=== PATIENT | female | born 1950 | race Caucasian/White ===

== ENCOUNTER → 2016-10-18 | Outpatient (CLI) | payer MEDICARE, OTHER ==
[~2016-10-18] VITALS: Ht 165.1 cm; Wt 102.1 kg
[~2016-10-18] MED LIST: AVAP150T31 PO; LIDOCAINE 2% INJ 100 MG/5 ML SDV (FOR ANES.) As Ordered ONE; NS 1,000 ML IV SCH; OMEP20CA3 PO; PROPOFOL 500 MG/50 ML VIAL As Ordered ONE; ePHEDrine SULFATE 25 MG/5 ML(5MG/ML) SYRINGE As Ordered ONE
--- NOTE | 2016-10-18 12:45 | ROOR ---
Patient Name: Nancy Conley Procedure Date: 10/18/2016 12:31 PM Date of : 1950 Age: 66 Room: [facility] Gender: Female Note Status: Finalized Procedure: Upper GI endoscopy Indications: Heartburn Providers: Avtar Puga MD Referring MD: Pillo Tamez MD Requesting Provider: Medicines: Monitored Anesthesia Care Complications: No immediate complications. Procedure: Pre-Anesthesia Assessment: - The heart rate, respiratory rate, oxygen saturations, blood pressure, adequacy of pulmonary ventilation, and response to care were monitored throughout the procedure. The Endoscope was introduced through the mouth, and advanced to the second part of duodenum. The upper GI endoscopy was accomplished without difficulty. The patient tolerated the procedure well. Findings: The Z-line was regular and was found 40 cm from the incisors. No other significant abnormalities were identified in a careful examination of the stomach. The exam of the duodenum was otherwise normal. Impression: - Z-line regular, 40 cm from the incisors. - No specimens collected. - The examination was otherwise normal. Recommendation: - Patient has a contact number available for emergencies. The signs and symptoms of potential delayed complications were discussed with the patient. Return to normal activities tomorrow. Written discharge instructions were provided to the patient. - Resume previous diet. - Discharge patient to home. - Follow an antireflux regimen. - Continue present medications. - Return to referring physician. - The findings and recommendations were discussed with the patient's family. Avtar Puga MD Avtar Puga MD 10/18/2016 12:45:02 PM This report has been signed electronically. Number of Addenda: 0 Note Initiated On: 10/18/2016 12:31 PM Estimated Blood Loss: Estimated blood loss: none.
--- NOTE | 2016-10-18 12:59 | ROOR ---
Patient Name: Nancy Conley Procedure Date: 10/18/2016 12:32 PM Date of : 1950 Age: 66 Room: [facility] Gender: Female Note Status: Finalized Procedure: Colonoscopy to Cecum Indications: Colon cancer screening in patient at increased risk: Colorectal cancer in mother Providers: Avtar Puga MD Referring MD: Pillo Tamez MD Requesting Provider: Medicines: Monitored Anesthesia Care Complications: No immediate complications. Procedure: Pre-Anesthesia Assessment: - The heart rate, respiratory rate, oxygen saturations, blood pressure, adequacy of pulmonary ventilation, and response to care were monitored throughout the procedure. The Colonoscope was introduced through the anus and advanced to the cecum, identified by appendiceal orifice and ileocecal valve. The colonoscopy was performed without difficulty. The patient tolerated the procedure well. The quality of the bowel preparation was excellent. Findings: The perianal and digital rectal examinations were normal. Non-bleeding internal hemorrhoids were found during retroflexion. The hemorrhoids were small and Grade I (internal hemorrhoids that do not prolapse). No other significant abnormalities were identified in a careful examination of the remainder of the colon. The exam was otherwise without abnormality on direct and retroflexion views. Impression: - Non-bleeding internal hemorrhoids. - The examination was otherwise normal on direct and retroflexion views. - No specimens collected. - The exam was otherwise normal to the cecum. Recommendation: - Patient has a contact number available for emergencies. The signs and symptoms of potential delayed complications were discussed with the patient. Return to normal activities tomorrow. Written discharge instructions were provided to the patient. - High fiber diet. - Discharge patient to home. - Continue present medications. - Repeat colonoscopy in 5 years for screening purposes. - Return to referring physician. - The findings and recommendations were discussed with the patient's family. Avtar Puga MD Avtar Puga MD 10/18/2016 12:59:21 PM This report has been signed electronically. Number of Addenda: 0 Note Initiated On: 10/18/2016 12:32 PM Estimated Blood Loss: Estimated blood loss: none.
[2016-10-18 13:20] VITALS: BP 141/79
== END ==
LOC: M OPP 11:22
PROVIDERS: ATTEND Internal Medicine Gastroenterology
DX: Z12.11 Encounter for screening for malignant neoplasm of colon (principal); Z80.0 Family history of malignant neoplasm of digestive organs; K64.0 First degree hemorrhoids; R12 Heartburn; Z79.899 Other long term (current) drug therapy
CPT/HCPCS: 43235; G0105

== ENCOUNTER 2016-11-17 04:13 | Emergency (ER) | payer MEDICARE, OTHER ==
[~2016-11-17] VITALS: Ht 165.1 cm; Wt 102.1 kg
[~2016-11-17 04:13] MED LIST changes: -LIDOCAINE 2% INJ 100 MG/5 ML SDV (FOR ANES.) As Ordered ONE; -NS 1,000 ML IV SCH; -PROPOFOL 500 MG/50 ML VIAL As Ordered ONE; -ePHEDrine SULFATE 25 MG/5 ML(5MG/ML) SYRINGE As Ordered ONE
[2016-11-17] MEDS ORDERED: NS 500 ML IV ONE (05:15)
[2016-11-17] MEDS ORDERED: CIPROFLOXACIN 500 MG TAB PO ONE (06:30)
[2016-11-17] MEDS ORDERED: PHENAZOPYRIDINE 100 MG TAB PO ONE (06:30)
[2016-11-17] MEDS ORDERED: CIPR500T89 PO (06:31)
[2016-11-17] MEDS ORDERED: PYRI200T5 PO (06:31)
[2016-11-17 06:55] VITALS: BP 135/65
== END 2016-11-17 06:58 | disposition home or self-care (01) ==
LOC: M ED 06:08
DX: N39.0 Urinary tract infection, site not specified (principal); G47.33 Obstructive sleep apnea (adult) (pediatric); Z79.899 Other long term (current) drug therapy

== ENCOUNTER → 2017-04-14 | Outpatient (CLI) | payer MEDICARE, OTHER ==
[~2017-04-14] MED LIST changes: +CIPR-249 PO; +PYRI1TAB5 PO
--- NOTE | 2017-04-14 11:56 | REPMRS ---
Patient History The patient states she had a clinical breast exam in 03/2017. Patient is postmenopausal and has history of melanoma skin cancer at age 66. Family history of colorectal cancer in mother at age 87 and endometrial cancer in maternal aunt at age 80. Took hormonal contraceptives for 5 years. Digital Woman Screen Mammo: April 14, 2017 - Exam #: [id number] Bilateral CC and MLO view(s) were taken. Technologist: Joi Brown, Technologist Prior study comparison: April 12, 2016, digital woman screen mammo performed at [facility]. April 23, 2015, digital woman screen mammo performed at [facility]. FINDINGS: There are scattered fibroglandular densities. There has been no change in the appearance of the mammogram from the prior studies. There is a mild amount of residual fibroglandular tissue which is fairly symmetric. There is no interval development of dominant mass, architectural distortion, or clustered microcalcification suggestive of malignancy. ASSESSMENT: BI-RADS/ACR category 1 mammogram. Negative. Recommendation Routine screening mammogram in 1 year (for women over age 40). This mammogram was interpreted with the aid of an FDA-approved computer-aided dectection system. Electronically Signed By: Umesh Muniz MD 04/14/17 [id number]
--- NOTE | 2017-04-15 10:34 | DEXA ---
AP SPINE L1 - L4 1.271 0.6 2.2 LT FEMUR TOTAL 1.030 0.2 1.5 RT FEMUR TOTAL 0.925 -0.7 0.6 TOTAL BODY TOTAL OTHER DUAL FEMUR FRAX* ASSESSMENT Risk factors: 10 year probability of fracture Major osteoporotic fracture % Hip fracture % COMMENTS: Normal bone densitometry of the spine. Normal bone densitometry of the left hip. There is low bone density of the right hip. The density of the spine has increased 9.6% since 10/07/2009. The density of the left hip has decreased 6.6% since 10/07/2009. The density of the right hip has decreased 11.5% since 10/07/2009. The increased density of the spine does represent a significant change. The decreased density of the left hip does represent a significant change. The decreased density of the right hip does represent a significant change. FOLLOW-UP: Recommendation for the next bone density exam: 2 years. [id number]
== END ==
LOC: M WHC 10:51
PROVIDERS: ATTEND Nurse Practitioner Women's Health
DX: Z01.419 Encounter for gynecological examination (general) (routine) without abnormal findings (principal); Z12.31 Encounter for screening mammogram for malignant neoplasm of breast; Z13.820 Encounter for screening for osteoporosis; M81.0 Age-related osteoporosis without current pathological fracture; Z78.0 Asymptomatic menopausal state; Z12.12 Encounter for screening for malignant neoplasm of rectum; Z80.0 Family history of malignant neoplasm of digestive organs; Z92.0 Personal history of contraception
CPT/HCPCS: 77080; 82270; G0101; G0202

== ENCOUNTER 2017-10-11 07:05 | Emergency (ER) | payer MEDICARE, OTHER | END 2017-10-11 08:05 | disposition home or self-care (01) | LOC: M ED 07:05 | DX: J34.0 Abscess, furuncle and carbuncle of nose (principal); I10 Essential (primary) hypertension; K21.9 Gastro-esophageal reflux disease without esophagitis; G47.33 Obstructive sleep apnea (adult) (pediatric); M19.90 Unspecified osteoarthritis, unspecified site; Z79.899 Other long term (current) drug therapy | CPT/HCPCS: 87186 ==

== ENCOUNTER 2017-10-14 22:23 | Emergency (ER) | payer MEDICARE, OTHER ==
[2017-10-15] MEDS: LIDOCAINE 2% MDV 20 ML VIAL SC (01:08)
== END 2017-10-15 01:41 | disposition home or self-care (01) ==
LOC: M ED 22:23
DX: J34.0 Abscess, furuncle and carbuncle of nose (principal); Z79.899 Other long term (current) drug therapy
CPT/HCPCS: 10060

== ENCOUNTER 2017-10-16 08:04 | Emergency (ER) | payer MEDICARE, OTHER | END 2017-10-16 08:50 | disposition home or self-care (01) | LOC: M ED 08:04 | DX: Z48.00 Encounter for change or removal of nonsurgical wound dressing (principal); J34.0 Abscess, furuncle and carbuncle of nose; I10 Essential (primary) hypertension; K21.9 Gastro-esophageal reflux disease without esophagitis; Z79.2 Long term (current) use of antibiotics; Z79.899 Other long term (current) drug therapy | CPT/HCPCS: 99282 ==

== ENCOUNTER → 2018-02-17 | Outpatient (CLI) | payer MEDICARE, OTHER | LOC: M RAD 11:26 | DX: N63.20 Unspecified lump in the left breast, unspecified quadrant (principal); R92.8 Other abnormal and inconclusive findings on diagnostic imaging of breast | CPT/HCPCS: 77065 ==

== ENCOUNTER → 2018-04-17 | Outpatient (CLI) | payer MEDICARE, OTHER | LOC: M WHC 10:09 | DX: Z01.419 Encounter for gynecological examination (general) (routine) without abnormal findings (principal); Z12.31 Encounter for screening mammogram for malignant neoplasm of breast (principal); Z78.0 Asymptomatic menopausal state; Z92.0 Personal history of contraception; Z80.0 Family history of malignant neoplasm of digestive organs | CPT/HCPCS: 77067 ==

== ENCOUNTER → 2019-04-18 | Outpatient (CLI) | payer MEDICARE, OTHER ==
[~2019-04-18] MED LIST changes: +BACT800T5 PO; +CALTTAB5 PO; +MULT1TAB10 PO; +MUPI2OI EXT; -OMEP20CA3 PO; +OMEP20CA4 PO; +RANI1SYP PO; +VITA-122 PO
--- NOTE | 2019-04-18 14:54 | REPMRS ---
Patient History The patient states she had a clinical breast exam in 03/2019. Patient is postmenopausal and has history of melanoma skin cancer at age 66. Family history of colorectal cancer at age 87 in mother, endometrial cancer at age 80 in maternal aunt. Took hormonal contraceptives for 5 years. 3D TOMOSYNTHESIS WAS PERFORMED. The [facility] lifetime risk for breast cancer is 7.0%. Digital Woman Screen Mammo: April 18, 2019 - Exam #: [id number] Bilateral CC and MLO view(s) were taken. Technologist: Joi Brown, Technologist Prior study comparison: April 17, 2018, bilateral digital woman screen mammo performed at [facility]. February 17, 2018, left breast digital mammo diagnostic unilateral, performed at [facility]. FINDINGS: There are scattered fibroglandular densities. There has been no change in the appearance of the mammogram from the prior studies. There is a mild amount of residual fibroglandular tissue which is fairly symmetric. There is no interval development of dominant mass, architectural distortion, or clustered microcalcification suggestive of malignancy. Assessment: BI-RADS/ACR category 1 mammogram. Negative Mammogram. Recommendation Routine screening mammogram in 1 year (for women over age 40). This mammogram was interpreted with the aid of an FDA-approved computer-aided dectection system. Electronically Signed By: Umesh Muniz MD 04/18/19 [id number]
== END ==
LOC: M WHC 13:08
PROVIDERS: ATTEND Nurse Practitioner Women's Health
DX: Z12.31 Encounter for screening mammogram for malignant neoplasm of breast (principal); Z78.0 Asymptomatic menopausal state; Z85.820 Personal history of malignant melanoma of skin; Z80.0 Family history of malignant neoplasm of digestive organs; Z92.0 Personal history of contraception
CPT/HCPCS: 77063; 77067; G0463

== ENCOUNTER → 2020-04-24 | Outpatient (REF) | payer MEDICARE, OTHER ==
[~2020-04-24] MED LIST changes: +OMEP1CAP73 PO; -OMEP20CA4 PO
== END ==
LOC: M SFHCWAGY 17:02
PROVIDERS: ATTEND Nurse Practitioner Women's Health
DX: Z12.4 Encounter for screening for malignant neoplasm of cervix (principal); N93.9 Abnormal uterine and vaginal bleeding, unspecified; N95.0 Postmenopausal bleeding; N95.8 Other specified menopausal and perimenopausal disorders
CPT/HCPCS: 87624; G0123; G0463

== ENCOUNTER → 2020-05-08 | Outpatient (CLI) | payer MEDICARE, OTHER ==
--- NOTE | 2020-05-08 16:59 | REPMRS ---
Patient History The patient states she has not had a clinical breast exam in over a year. Family history of colorectal cancer at age 87 in mother, endometrial cancer at age 80 in maternal aunt. Took hormonal contraceptives for 5 years. Digital Woman Screen Mammo: May 08, 2020 - Exam #: [id number] Bilateral CC and MLO view(s) were taken. Technologist: Vashti Medley, Technologist Prior study comparison: April 18, 2019, bilateral digital woman screen mammo performed at [facility]. April 17, 2018, bilateral digital woman screen mammo performed at [facility]. April 14, 2017, digital woman screen mammo performed at [facility]. FINDINGS: There are scattered fibroglandular densities. The Volpara volumetric breast density category is:B. There is a new finding of diffuse moderate dermal thickening in the right breast. This is most pronounced medially where dermal thickness today measures 6 mm, previously 1 mm. On MLO view diffuse dermal thickening is seen superiorly and inferiorly. There are surgical clips in the right axillary soft tissues.] There has been no other change in the appearance of the mammogram from the prior studies. There is a mild amount of scattered fibroglandular density which is fairly symmetric. There is no interval development of dominant mass, architectural distortion, or grouped microcalcification suggestive of malignancy. 3-D tomosynthesis shows no additional findings. Assessment: BI-RADS/ACR category 0 mammogram, Incomplete: Need additional imaging evaluation and/or prior mammograms for comparison. Recommendation Surgical consultation of the right breast. For further evaluation of diffuse skin thickening right breast new from prior mammography April 18, 2019 This patient's Lifetime Breast Cancer Risk is estimated at 6.6 %. This mammogram was interpreted with the aid of an FDA-approved computer-aided dectection system. Electronically Signed By: Fidel Alex MD 05/08/20 [id number]
--- NOTE | 2020-05-08 17:35 | REP ---
INDICATION: N93.9 AUB/N95.0 PMB. COMPARISON: None. TECHNIQUE: Transabdominal and transvaginal scanning were performed. FINDINGS: Uterine dimensions are normal at 8.0 x 3.8 x 5.6 cm. Endometrial echo is 0.9 cm thick and centrally placed. No free fluid is seen in the cul-de-sac. Visualized bladder diaz are smooth. Question small fibroid anterior uterus 0.8 cm in greatest diameter. Endometrial echo is considered thickened. It is somewhat heterogeneous. Doppler evidence of blood flow is seen within the thickened endometrium. The right ovary has dimensions of 2.1 x 1.3 x 1.3 cm. The left ovary dimensions are normal as well at 1.6 x 1.6 x 1.0 cm. IMPRESSION: Heterogeneously thickened endometrium in this postmenopausal patient. Endometrial neoplasia and/or hyperplasia must be suspected. 0.8 cm fibroid anteriorly. Normal ovaries.. <Electronically signed by Fidel Alex > 05/08/20 [id number]
== END ==
LOC: M WHC 14:25
PROVIDERS: ATTEND Nurse Practitioner Women's Health
DX: R92.8 Other abnormal and inconclusive findings on diagnostic imaging of breast (principal); N93.9 Abnormal uterine and vaginal bleeding, unspecified; N95.0 Postmenopausal bleeding; Z80.0 Family history of malignant neoplasm of digestive organs; Z92.0 Personal history of contraception; N63.10 Unspecified lump in the right breast, unspecified quadrant

== ENCOUNTER → 2020-05-13 | Outpatient (CLI) | payer MEDICARE, OTHER | LOC: M WHC 13:00 | PROVIDERS: ATTEND Nurse Practitioner Women's Health | DX: N63.15 Unspecified lump in the right breast, overlapping quadrants (principal) ==

== ENCOUNTER → 2020-05-13 | Outpatient (REF) | payer MEDICARE, OTHER | LOC: M SFHCWAGY 13:43 | PROVIDERS: ATTEND Nurse Practitioner Women's Health | DX: N93.9 Abnormal uterine and vaginal bleeding, unspecified (principal); N95.0 Postmenopausal bleeding; R93.89 Abnormal findings on diagnostic imaging of other specified body structures ==

== ENCOUNTER 2020-08-20 13:44 | Emergency (ER) | payer MEDICARE, OTHER ==
[~2020-08-20] VITALS: Ht 162.6 cm; Wt 101.8 kg
--- OUTSIDE RECORDS SUMMARY | 2020-08-20 14:47 | CCD ---
Author Author [facility] Address Unknown Phone Unavailable Care Team Providers Care Head Athletic Trainer Name Role Phone Som, P Delio Unavailable Unavailable Som, P Delio Unavailable Unavailable Som, P Delio Unavailable Unavailable Som, P Delio Unavailable Unavailable Som, P Delio Unavailable Unavailable Som, P Delio Unavailable Unavailable Som, P Delio Unavailable Unavailable Som, P Delio Unavailable Unavailable Som, P Delio Unavailable Unavailable Som, P Delio Unavailable Unavailable Som, P Delio Unavailable Unavailable Som, P Delio Unavailable Unavailable Som, P Delio Unavailable Unavailable Som, P Delio Unavailable Unavailable Som, P Delio Unavailable Unavailable Som, P Delio Unavailable Unavailable Som, P Delio Unavailable Unavailable Som, P Delio Unavailable Unavailable Som, P Delio Unavailable Unavailable Som, P Delio Unavailable Unavailable Som, P Delio Unavailable Unavailable Som, P Delio Unavailable Unavailable Som, P Delio Unavailable Unavailable Som, P Delio Unavailable Unavailable Som, P Delio Unavailable Unavailable Som, P Delio Unavailable Unavailable Som, P Delio Unavailable Unavailable Som, P Delio Unavailable Unavailable Som, P Delio Unavailable Unavailable Som, P Delio Unavailable Unavailable Som, P Delio Unavailable Unavailable Som, P Delio Unavailable Unavailable Som, P Delio Unavailable Unavailable Som, P Delio Unavailable Unavailable Som, P Delio Unavailable Unavailable Som, P Delio Unavailable Unavailable Som, P Delio Unavailable Unavailable Som, P Delio Unavailable Unavailable Som, P Delio Unavailable Unavailable Som, P Delio Unavailable Unavailable Som, P Delio Unavailable Unavailable Som, P Delio Unavailable Unavailable Som, P Delio Unavailable Unavailable Som, P Delio Unavailable Unavailable Som, P Delio Unavailable Unavailable Som, P Delio Unavailable Unavailable Som, P Delio Unavailable Unavailable Som, P Delio Unavailable Unavailable Som, P Delio Unavailable Unavailable RING, K GOPAL PA Unavailable Unavailable RING, K GOPAL PA Unavailable Unavailable RING, K GOPAL PA Unavailable Unavailable RING, K GOPAL PA Unavailable Unavailable RING, K GOPAL PA Unavailable Unavailable RING, K GOPAL PA Unavailable Unavailable RING, K GOPAL PA Unavailable Unavailable RING, K GOPAL PA Unavailable Unavailable RING, K GOPAL PA Unavailable Unavailable RING, K GOPAL PA Unavailable Unavailable RING, K GOPAL PA Unavailable Unavailable RING, K GOPAL PA Unavailable Unavailable RING, K GOPAL PA Unavailable Unavailable RING, K GOPAL PA Unavailable Unavailable RING, K GOPAL PA Unavailable Unavailable RING, K GOPAL PA Unavailable Unavailable RING, K GOPAL PA Unavailable Unavailable RING, K GOPAL PA Unavailable Unavailable RING, K GOPAL PA Unavailable Unavailable RING, K GOPAL PA Unavailable Unavailable RING, K GOPAL PA Unavailable Unavailable MD IGNACIO URIARTE Unavailable Unavailable Krystal, L Kimberly ELECTRICIAN SHIP Unavailable Unavailable Krystal, L Kimberly ELECTRICIAN SHIP Unavailable Unavailable Krystal, L Kimberly ELECTRICIAN SHIP Unavailable Unavailable Krystal, L Kimberly ELECTRICIAN SHIP Unavailable Unavailable Krystal, L Kimberly ELECTRICIAN SHIP Unavailable Unavailable Krystal, L Kimberly ELECTRICIAN SHIP Unavailable Unavailable Krystal, L Kimberly ELECTRICIAN SHIP Unavailable Unavailable Krystal, L Kimberly ELECTRICIAN SHIP Unavailable Unavailable Krystal, L Kimberly ELECTRICIAN SHIP Unavailable Unavailable Krystal, L Kimberly ELECTRICIAN SHIP Unavailable Unavailable Krystal, L Kimberly ELECTRICIAN SHIP Unavailable Unavailable Krystal, L Kimberly ELECTRICIAN SHIP Unavailable Unavailable Krystal, L Kimberly ELECTRICIAN SHIP Unavailable Unavailable Krystal, L Kimberly ELECTRICIAN SHIP Unavailable Unavailable Krystal, L Kimberly ELECTRICIAN SHIP Unavailable Unavailable Krystal, L Kimberly ELECTRICIAN SHIP Unavailable Unavailable Krystal, L Kimberly ELECTRICIAN SHIP Unavailable Unavailable Krystal, L Kimberly ELECTRICIAN SHIP Unavailable Unavailable Krystal, L Kimberly ELECTRICIAN SHIP Unavailable Unavailable Krystal, L Kimberly ELECTRICIAN SHIP Unavailable Unavailable Krystal, L Kimberly ELECTRICIAN SHIP Unavailable Unavailable Krystal, L Kimberly ELECTRICIAN SHIP Unavailable Unavailable Re-disclosure Warning The records that you are about to access may contain information from federally-assisted alcohol or drug abuse programs. If such information is present, then the following federally mandated warning applies: This information has been disclosed to you from records protected by federal confidentiality rules (42 CFR part 2). The federal rules prohibit you from making any further disclosure of this information unless further disclosure is expressly permitted by the written consent of the person to whom it pertains or as otherwise permitted by 42 CFR part 2. A general authorization for the release of medical or other information is NOT sufficient for this purpose. The Federal rules restrict any use of the information to criminally investigate or prosecute any alcohol or drug abuse patient.The records that you are about to access may contain highly sensitive health information, the redisclosure of which is protected by Article 27-F of the [facility] Public Health law. If you continue you may have access to information: Regarding HIV / AIDS; Provided by facilities licensed or operated by the [facility] Office of Mental Health; or Provided by the [facility] Office for People With Developmental Disabilities. If such information is present, then the following [facility] mandated warning applies: This information has been disclosed to you from confidential records which are protected by state law. State law prohibits you from making any further disclosure of this information without the specific written consent of the person to whom it pertains, or as otherwise permitted by law. Any unauthorized further disclosure in violation of state law may result in a fine or residential sentence or both. A general authorization for the release of medical or other information is NOT sufficient authorization for further disc losure. Family History Family Member Name Family Member Gender Family Member Status Date o f Status Description Data Source(s) Unknown Unknown Problem [facility]ENT ([facility], [facility]) father Unknown Male Problem MEDENT ([facility] () Encounters Encounter Providers Location Date Indications Data Source(s ) Outpatient Referrer: Delio Kearns 06/05/2020 07:38:11 AM E [facility] Outpatient Referrer: Delio Kearns 05/30/2020 10:10:20 AM E [facility] Outpatient Attender: Delio Acostaultant: Delio ANGULO 05/30/2020 09:09:55 AM EST - 05/30/2020 10:58:07 AM [facility] Outpatient Attender: Delio Davisant: Delio ANGULO 05/30/2020 12:00:00 AM EST - 05/30/2020 11:57:54 AM [facility] (WC PROC) [facility]Center Procedure [address] [place] [address] 05/13/2020 12:00:00 AM EST eCW1 ([facility]) (WC 20ESGYN) WCenter 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 [address] [place] [address] 04/24/2020 12:00:00 AM EDT eCW1 ([facility]) [facility] [address] [place] [address] 04/22/2020 12:00:00 AM EDT eCW1 ([facility]) Outpatient Referrer: MD IGNACIO URIARTE 10/31/2019 10:20:00 AM EDT [facility] Outpatient Referrer: MD IGNACIO URIARTE 10/31/2019 10:10:00 AM EDT [facility] Outpatient Referrer: MD IGNACIO URIARTE 10/31/2019 10:09:00 AM EDT [facility] Outpatient Attender: Kimberly Oliver/Ruma/Colton/Reinchris 10/23/2019 11:00:00 AM EDT MEDENT ([facility]) Outpatient Referrer: MD IGNACIO URIARTE 10/22/2019 08:31:00 AM EDT [facility] Outpatient 10/22/2019 08:24:00 AM EDT [facility] Outpatient Attender: GOPAL Lainez Primary 07/23/2019 07:30:00 AM EST MEDENT ([facility], [facility]) Immunizations Vaccine Date Status Description Data Source(s) INFLUENZA VACCINE QUADRIVALENT (65 YR UP)/MF59 C.1/PF 03/11/2020 12:00:00 AM EDT completed [facility] Medications Medication Brand Name Start Date Product Form Dose Route Admi nistrative Instructions Pharmacy Instructions Status Indications Reaction Description Data Source(s) 150 mg 08/08/2020 12:00:00 AM EST tablet 90 TAKE ONE TABLET BY MOUTH EVERY DAY TAKE ONE TABLET BY MOUTH EVERY DAY SOLD: 08/12/2020 [facility] Famotidine 40 MG Oral Tablet FAMOTIDINE 06/23/2020 12:00:00 AM EST tab let 90 TAKE ONE TABLET BY MOUTH EVERY DAY TAKE ONE TABLET BY MOUTH EVERY DAY SOLD: 06/24/2020 [facility] atorvastatin 20 MG Oral Tablet ATORVASTATIN CALCIUM 06/23/2020 1 2:00:00 AM EST tablet 90 TAKE ONE TABLET BY MOUTH EVERY D AY TAKE ONE TABLET BY MOUTH EVERY DAY SOLD: 06/24/2020 [facility] Famotidine 40 MG Oral Tablet famotidine (PEPCID) 40 MG tablet famotidine (PEPCID) 40 MG tablet 04/14/2020 12:00:00 AM EDT 40 mg Oral active Take 40 mg by mouth daily [facility] atorvastatin 20 MG Oral Tablet atorvastatin (LIPITOR) 20 MG tablet atorvastatin (LIPITOR) 20 MG tablet 03/24/2020 12:00:00 AM EDT 20 mg Oral active Take 20 mg by mouth daily [facility] 150 mg 02/16/2020 12:00:00 AM EDT tablet 90 TAKE ONE TABLET BY MOUTH EVERY DAY TAKE ONE TABLET BY MOUTH EVERY DAY SOLD: 05/20/2020 [facility] 150 mg 02/16/2020 12:00:00 AM EDT tablet 90 TAKE ONE TABLET BY MOUTH EVERY DAY TAKE ONE TABLET BY MOUTH EVERY DAY SOLD: 02/19/2020 [facility] 40 mg 12/25/2019 12:00:00 AM EDT tablet 90 TAKE ONE TABLET BY MOUTH EVERY DAY TAKE ONE TABLET BY MOUTH EVERY DAY SOLD: 04/15/2020 [facility] 40 mg 12/25/2019 12:00:00 AM EDT tablet 90 TAKE ONE TABLET BY MOUTH EVERY DAY TAKE ONE TABLET BY MOUTH EVERY DAY SOLD: 12/30/2019 [facility] atorvastatin 20 MG Oral Tablet ATORVASTATIN CALCIUM 12/17/2019 1 2:00:00 AM EDT tablet 90 TAKE ONE TABLET BY MOUTH EVERY D AY TAKE ONE TABLET BY MOUTH EVERY DAY SOLD: 03/26/2020 [facility] atorvastatin 20 MG Oral Tablet ATORVASTATIN CALCIUM 12/17/2019 1 2:00:00 AM EDT tablet 90 TAKE ONE TABLET BY MOUTH EVERY D AY TAKE ONE TABLET BY MOUTH EVERY DAY SOLD: 12/23/2019 [facility] 500 mg 12/05/2019 12:00:00 AM EDT capsule 4 TAKE FOUR CAPSULES BY MOUTH 1 HOUR PRIOR TO DENTAL PROCEDURE TAKE FOUR CAPSULES BY MOUTH 1 HOUR PRIOR TO DENTAL PROCEDURE SOLD: 12/10/2019 [facility] BIPAP 10/23/2019 12:00:00 AM EDT active MEDENT ([facility], ) 150 mg 08/22/2019 12:00:00 AM EST tablet 90 TAKE ONE TABLET BY MOUTH EVERY DAY TAKE ONE TABLET BY MOUTH EVERY DAY SOLD: 11/23/2019 [facility] 150 mg 08/22/2019 12:00:00 AM EST tablet 90 TAKE ONE TABLET BY MOUTH EVERY DAY TAKE ONE TABLET BY MOUTH EVERY DAY SOLD: 08/29/2019 [facility] Meclizine Hydrochloride 12.5 MG Oral Tablet Meclizine HCL 07/23/2019 12:00:00 AM EST ORAL active MEDENT ([facility] 12.5 mg 07/23/2019 12:00:00 AM EST tablet 10 TAKE ONE TABLET BY MOUTH AT BEDTIME NEEDED FOR DIZZINESS AND VERTIGO SYMPTOMS TAKE ONE TABLET BY MOUTH AT BEDTIME NEEDED FOR DIZZINESS AND VERTIGO SYMPTOMS SOLD: 07/23/2019 [facility] 150 mg 06/15/2019 12:00:00 AM EST capsule 90 TAKE ONE CAPSULE BY MOUTH AT BEDTIME TAKE ONE CAPSULE BY MOUTH AT BEDTIME SOLD: 09/11/2019 [facility] atorvastatin 20 MG Oral Tablet ATORVASTATIN CALCIUM 06/13/2019 1 2:00:00 AM EST tablet 90 TAKE ONE TABLET BY MOUTH EVERY D AY TAKE ONE TABLET BY MOUTH EVERY DAY SOLD: 09/11/2019 [facility] Omeprazole 20 MG Delayed Release Oral Ca psule omeprazole (PRILOSEC) 20 MG capsule omeprazole (PRILOSEC) 20 MG capsule 20 mg Oral aborted Take 20 mg by mouth every other day [facility] Insurance Providers Payer name Policy type / Coverage type Policy ID Covered alliance party ID Covered alliance party's relationship to wilson Policy Wilson Plan Information MEDICARE [id number] SP [id number] [facility] [id number] SP [id number] MEDICARE C [id number] S [id number] [facility] O [id number] S [id number] [facility] [id number] MEDICARE [id number] MEDICARE [id number] Heidi [id number] [facility] [id number] Heidi [id number] Commercial [id number] Self [id number] Medicare Natl Gov't Servi Medicare Primary [id number] Self [id number] Medicare - NGS Medicare Primary [id number] Self [id number] [facility] Health Maintenance Organization (HMO) [id number] Self [id number] MVP Commercial [id number] Self [id number] Medicare Natl Gov't Servi Medicare Primary [id number] Self [id number] Medicare C [id number] SELF [id number] [id number] DME Jurisdiction A [facility] C [id number] SELF [id number] [facility] Healthcare F [id number] SELF [id number] ANSI-Medicare Part B [id number] ANSI-Commercial [id number] MEDICARE C [id number] S [id number] A ANSI-Commercial [id number] ANSI-Medicare Part B [id number] MEDICARE [id number] SP [id number] A [facility] [id number] SP [id number] ANSI-Medicare Part B [id number] ANSI-Commercial [id number] MEDICARE [id number] SP [id number] A MEDICARE [id number] SP [id number] A Medicare C [id number] SELF [id number] A Medicare - NGS Medicare Primary [id number] Self [id number] P Commercial [id number] Self [id number] Medicare Natl Gov't Servi Medicare Primary [id number] Self [id number] MEDICARE [id number] Heidi [id number] A MEDICARE PI PI MVP PI PI MEDICARE [id number] SP [id number] A [facility] [id number] SP [id number] [facility] Commercial [id number] Self [id number] Medicare Natl Gov't Servi Medicare Primary [id number] Self [id number] [facility] [id number] SP [id number] [facility] Commercial [id number] Self [id number] Medicare Natl Gov't Servi Medicare Primary [id number] Self [id number] [facility] Health Care Health Maintenance Organization (HMO) [id number] Self [id number] [place] Primary [id number] Self [id number] P [id number] 18 [id number] Medicare [place] Division [id number] 18 [id number] [facility] Commercial Self Medicare Natl Gov't Servi Medicare Primary Self PATEL ZIMMERMAN PHY [id number] SP [id number] Problems, Conditions, and Diagnoses Code Display Name Description Problem Type Effective Dates Data Source(s) R93.89 [id number] Endometrial thickening on ultrasound Prob shyam 05/12/2020 12:00:00 AM EST eCW1 ([facility]) N93.9 [id number] Abnormal uterine bleeding (AUB) Problem 04/23/2020 12:00:00 AM EDT eCW1 ([facility]) N95.0 92129138 PMB (postmenopausal bleeding) Problem 2019 12:00:00 AM EDT eCW1 ([facility]) [id number] Obstructive sleep apnea syndrome Obstructive sle ep apnea syndrome Problem 10/23/2019 12:00:00 AM EDT [place] ([facility]RNA Peters) N64.59 Other signs and symptoms in breast Other signs a nd symptoms in breast Diagnosis 05/30/2020 11:03:31 AM EST [facility] Surgeries/Procedures Procedure Description Date Indications Data Source(s) US BREAST COMPLETE RIGHT US BREAST COMPLETE RIGHT Routine 05/30/2020 10:45 AM EST Thickening of skin of breast 05/30/2020 03:45:00 PM EST Thic kening of skin of breast [facility] Thickening of skin of breast RMVL IMPACTED CERUMEN SPX 1/BOTH EARS 07/23/2019 12:00 :00 AM EST MEDENT ([facility]) Results ID Date Data Source [id number] 07/31/2020 12:00:00 AM EST [facility] Sugar Chadwcik MD Patient Name: NANCY VELAZCO[address] [facility] Date of : [address] Date of Exam: [address] [place] [address], [place] [address]ZC#: Fax: [phone] EXAM: US EXTREMITY, NON-VASCULAR (ST MASS) LIMITEDCLINICAL INFORMATION: Right side melanoma of neck and sentinel node.COMPARISON: 10/31/2019.Real-time sonographic evaluation of the right axilla was performed. Thereis no cystic or solid mass. There is no evidence of lymphadenopathy in theright axilla.IMPRESSION:Negative right axillary ultrasound.Accredited by the [employer] in General Ultrasound.UMANG Tobias/Mary Jo you for referring NANCY VELAZCO to our office. Electronically Signed - REKHA RAMIREZ MD 08/04/20 11:38 Name Value Range Interpretation Code Description Data Violetta rce(s) Supporting Document(s) ID Date Data Source [id number] 07/31/2020 12:00:00 AM EST [facility] Sugar Chadwick MD Patient Name: NANCY VELAZCO[address] [facility] Date of : 1950[address] Date of Exam: [place] [id number]#: Fax: [phone] EXAM: US HEAD AND NECK SOFT TISSUECLINICAL INFORMATION: Right side melanoma of neck and sentinel node.COMPARISON: 10/31/2019.Real-time sonographic evaluation of the right neck soft-tissues wereperformed. No cystic or solid mass is seen. There is no evidence oflymphadenopathy.IMPRESSION:Negative ultrasound right neck soft-tissues.Accredited by the [employer] in General Ultrasound.UMANG Tobias/Mary Jo you for referring NANCY VELAZCO to our office. Electronically Signed - REKHA RAMIREZ MD 08/04/20 11:38 Name Value Range Interpretation Code Description Data Violetta rce(s) Supporting Document(s) ID Date Data Source [id number] 05/30/2020 12:28:27 PM [facility] NT INFORMATIONPatient MRN Name Date of Age Gend*PT [id number] Nancy Velazco 1950 69 years F ---PT Location Admission Date/Time Visit ID Attending Provider --- --- --- --- EPI ID CSN Admitting Provider [id number] ---Punch biopsy right breastIndications: Skin thickeningProcedure in detail: Consent was obtained with the patient her right breast wasprepped and draped. I injected 1% lidocaine with epinephrine at the 2:00location 3 cm from the nipple areola. I then used a 5 mm punch to completelyexcise full-thickness skin. The specimen was then placed in formalin. The skinwas closed with a 4-0 chromic stitch. A dressing was applied. The patienttolerated procedure well. Name Value Range Interpretation Code Description Data Violetta rce(s) Supporting Document(s) ID Date Data Source [id number] 05/30/2020 12:26:50 PM EST [facility] NT INFORMATIONPatient MRN Name Date of Age Gend*PT [id number] Nancy Velazco 1950 69 years F ---PT Location Admission Date/Time Visit ID Attending Provider --- --- --- --- EPI ID CSN Admitting Provider [id number] ---NEW CONSULT FOR BREAST PROBLEMReferred by: Arabella Diazessment:Right breast skin thickeningPlan:We discussed her breast findings on exam and imaging. [facility] In addition we performed a right breastultrasound and SJIA which just demonstrated skin thickening and no mass. Wetalked about the possibility of trying to rule out inflammatory breast cancerwith a biopsy. If the biopsy is negative I will see her back in 3 to 4 monthswith repeat right breast imaging with a mammogram and ultrasound. We will callher with the pathology report next week. She will call our office with any questions, concerns or changes in her breasthealth in the meantime.HPI:Nancy Velazco is a 69 years y.o. female who was referred for right breastskin thickening. 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 It looks like 2 nodes were removed and she did not have anylymphedema problems afterwards.Family Cancer History:Breast: NoOvarian: NoPast Medical History:Diagnosis Date Actinic keratosis Cardiac murmur Early cataracts, bilateral GERD (gastroesophageal reflux disease) Hyperlipidemia Hypertension Melanoma posterior neck Melanoma Rosacea Sleep apnea BiPAPPast Surgical History:Procedure Laterality Date COLONOSCOPY DILATION AND CURETTAGE OF UTERUS MALIGNANT SKIN LESION EXCISION melanoma from posterior neck SKIN LESION EXCISION TOTAL KNEE ARTHROPLASTY Right 05/10/2017 Procedure: TOTAL REPLACEMENT KNEE RIGHT; Surgeon: Gadiel Lutz MD;Laterality: Right; SOS PA TO ASSIST TRIATHLONAllergiesAllergen Reactions Adhesive Tape Other (See Comments) Causes rednessFamily HistoryProblem Relation Age of Onset Colon cancer Mother Uterine cancer Maternal Aunt Malig Hyperthermia Neg HxSocial HistoryTobacco Use Smoking status: Never Smoker Smokeless tobacco: Never UsedSubstance Use Topics Alcohol use: Yes Comment: 0-1/year Drug use: NoCurrent Outpatient MedicationsMedication Sig Dispense Refill atorvastatin (LIPITOR) 20 MG tablet Take 20 mg by mouth daily Calcium Carbonate-Vitamin D (CALCARB 600/D PO) Take 1 tablet by mouth daily famotidine (PEPCID) 40 MG tablet Take 40 mg by mouth daily ferrous gluconate (IRON 27) 240 (27 FE) MG tablet Take 240 mg by mouth daily irbesartan (AVAPRO) 150 MG tablet Take 150 mg by mouth daily Multiple Vitamins-Iron (MULTIVITAMIN WITH IRON) TABS Take 1 tablet by mouthdaily Vitamin D (CHOLECALCIFEROL) 1000 units tablet Take 1,000 Units by mouth dailyNo current facility-administered medications for this visit.Objective: BP 152/82 | Pulse 75 | Resp 18 | Ht 1.651 m (5' 5") | Wt (!) 104.3 kg (230lb) | BMI 38.27 kg/m General appearance: alert, appears stated age and cooperativeLungs: clear to auscultation bilaterallyLymph Nodes: Cervical, supraclavicular, and axillary nodes normal.Right Breast: Minimal and mild erythema around the right central breast mildskin thickening nontender no distinct mass nipple everted without dischargeLeft Breast: Nipple everted no masses skin appears normalImaging personally reviewedBreast density B diffuse moderate dermal thickening on the rightRight breast ultrasound skin thickening medially in the 2:00 location 2 to 4 cmfrom the nipple no masses no lymph nodes Name Value Range Interpretation Code Description Data Violetta rce(s) Supporting Document(s) ID Date Data Source [id number] 05/30/2020 10:45:00 AM EST [facility] ULTR ASOUND BREAST RIGHT COMPLETECLINICAL HISTORY: Skin thickening of right breast.COMPARISON: 05/08/2020 mammogram from an outside institution.FINDINGS: Ultrasound imaging was performed of the entire breast including the retroareolar region and axilla. Skin thickening is seen greater medially and especially in the 2 o'clock position, 2 to 4 cm from the nipple, where it measures 4.8 mm. No suspicious cystic or solid abnormality is seen. No abnormal vascularity or lymph nodes are seen.IMPRESSION: Right breast skin thickening greater medially at 2 o'clock as described.Dictated by: JULIO BERG M.D. on 05/30/2020 Transcribed by: on 05/30/2020 10:52 AMC G code: ,CDS Modifier: ,cc: Name Value Range Interpretation Code Description Data Violetta rce(s) Supporting Document(s) ID Date Data Source [id number] 06/03/2020 03:59:57 PM EST [facility] [place] [facility] [address] [address]Hug# Surgical Pathology ReportPatient Name: NANCY VELAZCO: 1Accession #:[id number]) ReceivedA: Punch biopsy to right breastClinical Diagnosis and HistoryThickening of skin on right breastDIAGNOSISSKIN, RIGHT BREAST, PUNCH BIOPSY: BENIGN SKIN WITH NO SIGNIFICANT PATHOLOGIC FINDINGS. Note: The epidermis is normal. The dermis is unremarkable, exceptfor scant perivascular chronic inflammation in the superficial dermis. PAS stain is negative for fungus. Gross DescriptionReceived in formalin labeled "R breast punch biopsy" is a 0.5 cm whitecircular skin punch excised to 0.4 cm. The specimen is inked blue andentirely submitted as A1. 5 levels. [id number] Reported: 06/03/2020Electronically Signed Out By Castro Garcia MD [facility] [place], [place] [id number] component performed at [facility], Histopathology, [address] [place] [address], [address].Reported at [facility], [address], [place], [address]. This report may includeimmunohistochemical or in-situ hybridization results. Testing wasdeveloped and the performance characteristics determined by [employer] as required by CLIA '88. The FDA hasdetermined that approval for specific use is not necessary for clinicaluse. The quality of Hematoxylin and Eosin stains and as applicable, forall immunohistochemical and/or special stains, including positive andnegative controls, were reviewed and considered appropriate.ICD codes N64.59CPT codesA: 08498X, 75907O Name Value Range Interpretation Code Description Data Violetta rce(s) Supporting Document(s) ID Date Data Source [id number] 10/31/2019 12:00:00 AM EDT [facility] Sugar Chadwick MD [facility] Date of : 1950uite 200 Date of Exam: 10/31/2019ADRIÁN Paz [id number]#: Fax: [phone] EXAM: US EXTREMITY, NON-VASCULAR (ST MASS) LIMITEDCLINICAL INFORMATION: History of melanoma. Status post right axillarylymph node dissection.Multiple ultrasonographic images of the right axilla were obtained and showno evidence of a cystic or solid mass. There is no evidence oflymphadenopathy.Accredited by the [employer] in General Ultrasound.STEFFI Jiang/Hernandez you for referring NANCY VELAZCO to our office. Electronically Signed - CATRACHO LINDA DO 10/31/19 16:35 Name Value Range Interpretation Code Description Data Violetta rce(s) Supporting Document(s) ID Date Data Source [id number] 10/31/2019 12:00:00 AM EDT [facility] Sugar Chadwick MD Patient Name: JUD VELAZCO [facility] Date of : 1950uite 200 Date of Exam: 10/31/2019ADRIÁN Paz [id number]#: Fax: [phone] EXAM: US HEAD AND NECK SOFT TISSUECLINICAL INFORMATION: History of melanoma.Multiple ultrasonographic images of the right neck soft tissues show nocystic or solid masses. There is no evidence of lymphadenopathy.Accredited by the [employer] in General Ultrasound.STEFFI Jiang/Hernandez bentley for referring NANCY VELAZCO to our office. Electronically Signed - CATRACHO LINDA DO 05/06/20 16:35 Name Value Range Interpretation Code Description Data Violetta rce(s) Supporting Document(s) Procedure Social History Code Duration Value Status Description Data Source(s ) Alcohol intake 05/30/2020 12:00:00 AM EST Yes completed [facility] Smoking 05/30/2020 12:00:00 AM EST Never smoker completed Never s flker [facility] Smoking 05/13/2020 12:00:00 AM EST Never Smoker completed Never S moker eCW1 ([facility]) Smoking 04/24/2020 12:00:00 AM EDT Never Smoker completed Never S moker eCW1 ([facility]) Vital Signs ID Date Data Source UNK Name Value Range Interpretation Code Description Data Source(s) Body mass index (BMI) [Ratio] 38.27 kg/m2 38.27 kg/m2 [facility] Body weight 104.327 kg 104.327 kg [facility] Body height 165.1 cm 165.1 cm [facility] Respiratory rate 18 /min 18 /min [facility] Heart rate 75 /min 75 /min [facility] Diastolic blood pressure 82 mm[Hg] 82 mm[Hg] [facility] Systolic blood pressure 152 mm[Hg] 152 mm[Hg] [facility] Diastolic blood pressure 78 mm[Hg] 78 mm[Hg] W1 ([facility]) Systolic blood pressure 158 mm[Hg] 158 mm[Hg] e CW1 ([facility]) Body mass index (BMI) [Ratio] 41.27 kg/m2 41.27 kg/m2 [facility] ([facility]) Body height 63 [in_i] 63 [in_i] W1 ([facility]) Body weight 105.69 kg 105.69 kg W1 ([facility]) Body weight 233 [lb_av] 233 [lb_av] W1 ([facility]) Diastolic blood pressure 82 mm[Hg] 82 mm[Hg] [facility] ([facility]) Systolic blood pressure 122 mm[Hg] 122 mm[Hg] e CW1 ([facility]) Body mass index (BMI) [Ratio] 40.74 kg/m2 40.74 kg/m2 eCW1 ([facility]) Body height 63 [in_i] 63 [in_i] eCW1 ([facility]) Body weight 104.33 kg 104.33 kg eCW1 ([facility]) Body weight 230 [lb_av] 230 [lb_av] eCW1 ([facility]) Body mass index (BMI) [Ratio] 38.3 kg/m2 38.3 k g/m2 [facility] ([facility], [facility]) Body height 65 [in_i] 65 [in_i] MEDENT ([facility], [facility]) 5'5" Body weight 230.00 [lb_av] 230.00 [lb_av] MEDEN T ([facility], [facility]) Body temperature 98.7 [degF] 98.7 [degF] [facility] ([facility]) Oxygen saturation in Arterial blood by Pulse oximetry 95 % 95 % [facility] ([facility], [facility]) Respiratory rate 18 /min 18 /[facility] Heart rate 67 /min 67 /min [facility] ([facility], [facility]) Diastolic blood pressure 80 mm[Hg] 80 mm[Hg] [facility] ([facility]) Systolic blood pressure 134 mm[Hg] 134 mm[Hg] M EDENT ([facility]) Patient Treatment Plan of Care Planned Activity Planned Date Details Description Data Source (s) Famotidine 40 MG Oral Tablet 04/14/2020 12:00:00 AM EDT [facility] atorvastatin 20 MG Oral Tablet 03/24/2020 12:00:00 AM EDT [facility] Omeprazole 20 MG Delayed Release Oral Capsule [facility]
--- NOTE | 2020-08-20 15:05 | REP ---
INDICATION: trauma. COMPARISON: None. TECHNIQUE: Three views FINDINGS: AC joint slightly narrowed with small spurs inferiorly. No elevation of the clavicle in relationship to the scapula to suggest CC joint separation. No clavicular, scapularor rib fractures identified. There is a subtle fracture with cortical discontinuity over the greater tuberosity of the humeral head. Degenerative changes in the thoracic spine noted. No pneumothorax. Mild glenohumeral joint degenerative change without soft tissue calcification. IMPRESSION: Cortical discontinuity representing fracture greater tuberosity humeral head. No subluxation or dislocation. AC and glenohumeral joint degenerative changes. <Electronically signed by Herbert Liz > 08/20/20 3224
[2020-08-20] MEDS ORDERED: BACITRACIN OINTMENT 30GM TUBE TOP ONE (16:20)
[2020-08-20] MEDS ORDERED: POLYSPORIN TOPICAL OINTMENT 15GM TOP ONE (16:25)
[2020-08-20 16:26] VITALS: BP 132/72
== END 2020-08-20 16:34 | disposition home or self-care (01) ==
LOC: M ED 13:44 → EDBD 13:44 → M ED 16:34
DX: S42.202A Unspecified fracture of upper end of left humerus, initial encounter for closed fracture (principal); S60.511A Abrasion of right hand, initial encounter; W18.39XA Other fall on same level, initial encounter; Y92.89 Other specified places as the place of occurrence of the external cause; I10 Essential (primary) hypertension; K21.9 Gastro-esophageal reflux disease without esophagitis; Z79.899 Other long term (current) drug therapy

== ENCOUNTER → 2021-08-05 | Outpatient (REF) | payer MEDICARE, OTHER ==
[2021-08-05 12:53] LABS: HEMATOCRIT 39.6 % (36.0-47.0); HEMOGLOBIN 13.2 g/dl (12.0-15.5); MEAN CORPUSCULAR HEMOGLOBIN 30.3 pg (27.0-33.0); MEAN CORPUSCULAR HGB CONC 33.3 g/dl (32.0-36.5); PLATELET COUNT, AUTOMATED 226 10^3/uL (150-450); RED BLOOD COUNT 4.35 10^6/uL (4.00-5.40); WHITE BLOOD COUNT 7.4 10^3/uL (4.0-10.0)
[2021-08-05 13:17] LABS: ALBUMIN 3.9 GM/DL (3.2-5.2); ALT/SGPT 25 U/L (12-78); BILIRUBIN,TOTAL 0.7 MG/DL (0.2-1.0); BLOOD UREA NITROGEN 16 MG/DL (7-18); CALCIUM LEVEL 9.1 MG/DL (8.8-10.2); CARBON DIOXIDE LEVEL 29 MEQ/L (21-32); CHLORIDE LEVEL 106 MEQ/L (98-107); CHOLESTEROL LEVEL 151 MG/DL (<200); CHOLESTEROL RISK RATIO 2.849 (<5); CREATININE FOR GFR 0.78 MG/DL (0.55-1.30); GLOMERULAR FILTRATION RATE > 60.0 (>39); GLUCOSE, FASTING 126 MG/DL (70-100); HDL CHOLESTEROL 53 MG/DL (>40); LDL CHOLESTEROL 77 MG/DL (<100); NON-HDL-C 98 MG/DL; POTASSIUM SERUM 4.2 MEQ/L (3.5-5.1); SODIUM LEVEL 142 MEQ/L (136-145); TOTAL PROTEIN 7.6 GM/DL (6.4-8.2); TRIGLYCERIDES LEVEL 103 MG/DL (<150)
[2021-08-05 14:15] LABS: HEMOGLOBIN A1c 6.1 %
== END ==
LOC: M LABDRWAD 12:37
PROVIDERS: ATTEND Family Medicine
DX: I10 Essential (primary) hypertension (principal); R73.01 Impaired fasting glucose

== ENCOUNTER → 2022-04-06 | Outpatient (CLI) | payer MEDICARE, OTHER ==
[~2022-04-06] MED LIST changes: +ATOR1TAB21 PO; +CALC600T86 PO; +CHOL25TA9 PO; +FAMO40TA3 PO; +IRBE150T7 PO; +MULT-90 PO; +VITA1CAP4 PO
== END ==
LOC: M LABSMTC 09:28
PROVIDERS: ATTEND Anesthesiology
DX: Z01.818 Encounter for other preprocedural examination (principal); Z11.52 Encounter for screening for COVID-19

== ENCOUNTER 2022-04-12 10:41 | Day surgery (SDC) | payer MEDICARE, OTHER ==
[~2022-04-12] VITALS: Ht 165.1 cm; Wt 100.2 kg
[~2022-04-12 10:41] MED LIST changes: +NS 1,000 ML IV ONE
[2022-04-12] MEDS ORDERED: propofoL 200 MG/20 ML VIAL As Ordered ONE ×2 (12:19→12:42)
[2022-04-12] MEDS ORDERED: LIDOCAINE 2% 100MG/5ML SDV (FOR ANES.) As Ordered ONE (12:19)
[2022-04-12] MEDS ORDERED: fentaNYL 100 MCG/2 ML INJECTION As Ordered ONE (12:19)
[2022-04-12 13:15] VITALS: BP 121/58
== END 2022-04-12 13:37 | disposition home or self-care (01) ==
LOC: M OPP 10:41
PROVIDERS: ATTEND Internal Medicine Gastroenterology
DX: Z12.11 Encounter for screening for malignant neoplasm of colon (principal); Z80.0 Family history of malignant neoplasm of digestive organs; K64.0 First degree hemorrhoids; D12.0 Benign neoplasm of cecum; K31.89 Other diseases of stomach and duodenum; Z79.02 Long term (current) use of antithrombotics/antiplatelets; Z79.899 Other long term (current) drug therapy; G47.30 Sleep apnea, unspecified; Z99.89 Dependence on other enabling machines and devices; Z80.41 Family history of malignant neoplasm of ovary
CPT/HCPCS: 43239; 45385; 88305; J3010

== ENCOUNTER → 2023-09-29 | Outpatient (CLI) | payer MEDICARE, OTHER ==
[~2023-09-29] MED LIST changes: +IRBE150T27 PO; -IRBE150T7 PO; -NS 1,000 ML IV ONE
== END ==
LOC: M WHC 09:24
PROVIDERS: ATTEND Nurse Practitioner Family
DX: Z12.31 Encounter for screening mammogram for malignant neoplasm of breast (principal); M81.0 Age-related osteoporosis without current pathological fracture

== ENCOUNTER → 2023-11-02 | Outpatient (REF) | payer MEDICARE, OTHER | LOC: M SFHCWAGY 15:12 | PROVIDERS: ATTEND Nurse Practitioner Family | DX: N95.0 Postmenopausal bleeding (principal) ==

== ENCOUNTER → 2023-11-24 | Outpatient (CLI) | payer MEDICARE, OTHER | LOC: M WHC 12:28 | PROVIDERS: ATTEND Nurse Practitioner Family | DX: N95.0 Postmenopausal bleeding (principal) ==

== ENCOUNTER 2024-03-30 12:17 | Day surgery (SDC) | payer MEDICARE, OTHER ==
[~2024-03-30] VITALS: Ht 160 cm; Wt 85.7 kg
[2024-03-30] MEDS ORDERED: LR 1,000 ML IV SCH ×2 (12:35→17:10)
[2024-03-30 12:57] LABS: HEMATOCRIT 39.6 % (36.0-47.0); HEMOGLOBIN 13.4 g/dl (12.0-15.5); MEAN CORPUSCULAR HEMOGLOBIN 30.7 pg (27.0-33.0); MEAN CORPUSCULAR HGB CONC 33.8 g/dl (32.0-36.5); MEAN CORPUSCULAR VOLUME 90.8 fl (80.0-96.0); PLATELET COUNT, AUTOMATED 210 10^3/uL (150-450); RED BLOOD COUNT 4.36 10^6/uL (4.00-5.40); WHITE BLOOD COUNT 7.4 10^3/uL (4.0-10.0)
[2024-03-30] MEDS ORDERED: propofoL 200 MG/20 ML VIAL As Ordered ONE (15:36)
[2024-03-30] MEDS ORDERED: LIDOCAINE 2% 100MG/5ML SDV (FOR ANES.) As Ordered ONE (15:36)
[2024-03-30] MEDS ORDERED: ONDANSETRON 4MG 2ML VIAL As Ordered ONE (15:36)
[2024-03-30] MEDS ORDERED: fentaNYL 100 MCG/2 ML INJECTION As Ordered ONE (15:37)
[2024-03-30] MEDS ORDERED: KETOROLAC 60MG 2ML VIAL As Ordered ONE (16:03)
[2024-03-30] MEDS ORDERED: ePHEDrine SULFATE 25 MG/5 ML(5MG/ML) SYRINGE As Ordered ONE (16:04)
[2024-03-30] MEDS ORDERED: ACETAMINOPHEN 1000MG 100ML IV BAG As Ordered ONE (16:13)
[2024-03-30] MEDS ORDERED: MORPHINE 2 MG/ML 1ML VIAL IV PRN (16:25)
[2024-03-30] MEDS ORDERED: oxyCODONE 5MG TAB PO PRN (16:25)
[2024-03-30] MEDS ORDERED: fentaNYL 100 MCG/2 ML INJECTION IV PRN (16:25)
[2024-03-30] MEDS ORDERED: ONDANSETRON 4MG 2ML VIAL IV PRN (16:25)
[2024-03-30 17:53] VITALS: BP 142/68; TEMP 97.3; O2SAT 99
[2024-03-30] MEDS ORDERED: ACETAMINOPHEN 500 MG TAB PO ONE (22:00)
== END 2024-03-30 18:22 | disposition home or self-care (01) ==
LOC: M SDC 12:17
PROVIDERS: ATTEND Specialist
DX: N95.0 Postmenopausal bleeding (principal); N84.0 Polyp of corpus uteri; I10 Essential (primary) hypertension; E78.00 Pure hypercholesterolemia, unspecified; G47.30 Sleep apnea, unspecified; K21.9 Gastro-esophageal reflux disease without esophagitis; Z79.899 Other long term (current) drug therapy; Z85.820 Personal history of malignant melanoma of skin
CPT/HCPCS: 36415; 58558; 85027; 88305; J0131; J1100; J1885; J2405; J3010

== ENCOUNTER → 2024-09-07 | Outpatient (CLI) | payer MEDICARE, OTHER ==
[~2024-09-07] MED LIST changes: +PROHANCE 279.3MG/ML 15ML VIAL ONE; +PROHANCE 279.3MG/ML 5ML VIAL ONE
== END ==
LOC: M PLAIMG 12:02
PROVIDERS: ATTEND Internal Medicine Hematology & Oncology
DX: C43.4 Malignant melanoma of scalp and neck (principal)
CPT/HCPCS: 70553; A9576

== ENCOUNTER 2024-10-29 15:27 | Inpatient (IN) | payer MEDICARE, OTHER ==
[~2024-10-29] VITALS: Ht 165.1 cm; Wt 84.5 kg
[~2024-10-29 15:27] MED LIST changes: -PROHANCE 279.3MG/ML 15ML VIAL ONE; -PROHANCE 279.3MG/ML 5ML VIAL ONE
[2024-10-29 16:13] LABS: VENOUS BASE EXCESS 1.8 (-2.0-2.0); VENOUS HCO3 26.5 MMOL/L (23.0-27.0); VENOUS O2 SATURATION 91.7 % (60.0-80.0); VENOUS PARTIAL PRESSURE O2 69.3 mmHg (30.0-50.0); VENOUS PH 7.418 UNITS (7.330-7.430); VENOUS STANDARD HCO3 25.9 MMOL/L; VENOUS TOTAL CO2 27.8 MMOL/L (24.0-28.0)
[2024-10-29 16:33] LABS: BASO % 0.1 % (0.0-1.0); HEMATOCRIT 35.8 % (36.0-47.0); HEMOGLOBIN 11.8 g/dl (12.0-15.5); LYMPH # 0.8 10^3/uL (1.5-5.0); MEAN CORPUSCULAR HEMOGLOBIN 28.9 pg (27.0-33.0); MEAN CORPUSCULAR VOLUME 87.5 fl (80.0-96.0); MONO # 0.4 10^3/uL (0.0-0.8); MONO % 2.9 % (2.0-8.0); NEUTROPHILS # 12.4 10^3/uL (1.5-8.5); NEUTROPHILS % 90.2 % (36.0-66.0); PLATELET COUNT, AUTOMATED 266 10^3/uL (150-450); RED BLOOD COUNT 4.09 10^6/uL (4.00-5.40); WHITE BLOOD COUNT 13.7 10^3/uL (4.0-10.0)
[2024-10-29] MEDS ORDERED: ELIQ5TAB4 (16:40)
[2024-10-29 16:49] LABS: ALKALINE PHOSPHATASE 118 U/L (35-104); ALT/SGPT 51 U/L (7.0-40); AST/SGOT 27 U/L (<34); BILIRUBIN,DIRECT 0.2 MG/DL (<0.4); BILIRUBIN,TOTAL 0.6 MG/DL (0.3-1.2); BLOOD UREA NITROGEN 26 MG/DL (9-23); CALCIUM LEVEL 9.2 MG/DL (8.3-10.6); CARBON DIOXIDE LEVEL 26 MMOL/L (20-31); CHLORIDE LEVEL 96 MMOL/L (98-107); GLOMERULAR FILTRATION RATE > 90.0 (>39); GLUCOSE, FASTING 395 MG/DL (74-106); POTASSIUM SERUM 4.6 MMOL/L (3.5-5.1); SODIUM LEVEL 132 MMOL/L (136-145); TOTAL PROTEIN 7.4 G/DL (5.7-8.2)
[2024-10-29 16:57] LABS: CPK CREATINE PHOSPHOKINASE 22 U/L (34-145); MB/CK RELATIVE INDEX 4.54 (< OR =4)
[2024-10-29] MEDS ORDERED: ISOVUE-370 76% 100ML VIAL As Ordered ONE (17:20)
[2024-10-29 18:14] LABS: CPK CREATINE PHOSPHOKINASE < 15 U/L (34-145)
[2024-10-29] MEDS: cefTRIAXone SOD 2 GM in DEXTROSE 5% (D5W) ADV/MINI-BAG 50 ML IV ONE (19:29)
[2024-10-29] MEDS ORDERED: ELIQ5TAB PO (20:05)
[2024-10-29] MEDS ORDERED: LEVO25TA5 PO (20:05)
[2024-10-29] MEDS ORDERED: ONDA-282 PO (20:08)
[2024-10-29] MEDS ORDERED: PRED20TA PO (20:08)
[2024-10-29] MEDS ORDERED: OXYC-517 PO (20:08)
[2024-10-29] MEDS ORDERED: PREG50CA3 PO (20:08)
[2024-10-29] MEDS ORDERED: HOME MED LIST COMPLETE! XX SCH (20:10)
[2024-10-29] MEDS ORDERED: ACETAMINOPHEN 325 MG TAB PO PRN (20:45)
[2024-10-29] MEDS ORDERED: MOM 30ML SUSPENSION UDC PO PRN (20:45)
[2024-10-29] MEDS ORDERED: MAALOX 30 ML SUSP *UDC PO PRN (20:45)
[2024-10-29] MEDS: FUROSEMIDE 40MG/4ML VIAL IV SCH (21:01)
[2024-10-29] MEDS: methylPREDNISolone 125MG 2ML VIAL IV SCH (21:02)
[2024-10-29 22:02] LABS: PROCALCITONIN <0.04 ng/ml
[2024-10-29 22:58] VITALS: BP 150/80; TEMP 96.8; O2SAT 95
[2024-10-29] MEDS: DOCUSATE SODIUM 100MG CAPSULE PO SCH (23:46)
[2024-10-29] MEDS: APIXABAN 5 MG TAB PO SCH (23:46)
[2024-10-29] MEDS: AZITHROMYCIN 250MG TABLET PO SCH (23:47)
[2024-10-29] MEDS: PREGABALIN 50 MG CAP PO SCH (23:47)
[2024-10-30] VITALS (7 sets, daily range): BP systolic 122–149; BP diastolic 72–87; TEMP 97.2–97.9; O2SAT 90–98
[2024-10-30] MEDS: LEVALBUTEROL 1.25 MG 0.5ML CONCENTRATE NEB INH SCH (02:00)
[2024-10-30] MEDS: LEVOTHYROXINE 25MCG TABLET (0.025MG) PO SCH (06:17)
[2024-10-30 08:11] LABS: HEMATOCRIT 34.8 % (36.0-47.0); HEMOGLOBIN 11.5 g/dl (12.0-15.5); MEAN CORPUSCULAR HEMOGLOBIN 28.6 pg (27.0-33.0); MEAN CORPUSCULAR VOLUME 86.6 fl (80.0-96.0); PLATELET COUNT, AUTOMATED 270 10^3/uL (150-450); RED BLOOD COUNT 4.02 10^6/uL (4.00-5.40); WHITE BLOOD COUNT 14.4 10^3/uL (4.0-10.0)
[2024-10-30 08:25] LABS: INR 1.08; PROTHROMBIN TIME 14.3 SECONDS (12.5-14.5)
[2024-10-30] MEDS: FAMOTIDINE 20 MG TAB PO SCH (08:30)
[2024-10-30 08:33] LABS: ALBUMIN 3.1 G/DL (3.2-5.2); ALKALINE PHOSPHATASE 115 U/L (35-104); ALT/SGPT 48 U/L (7.0-40); AST/SGOT 25 U/L (<34); BILIRUBIN,TOTAL 0.7 MG/DL (0.3-1.2); BLOOD UREA NITROGEN 23 MG/DL (9-23); CALCIUM LEVEL 8.9 MG/DL (8.3-10.6); CARBON DIOXIDE LEVEL 26 MMOL/L (20-31); CHLORIDE LEVEL 95 MMOL/L (98-107); CREATININE FOR GFR 0.68 MG/DL (0.55-1.30); GLOMERULAR FILTRATION RATE > 90.0 (>39); GLUCOSE, FASTING 272 MG/DL (74-106); POTASSIUM SERUM 4.4 MMOL/L (3.5-5.1); SODIUM LEVEL 135 MMOL/L (136-145); TOTAL PROTEIN 7.5 G/DL (5.7-8.2)
[2024-10-30] MEDS: oxyCODONE 5MG TAB PO PRN (13:58)
[2024-10-30] MEDS: cefTRIAXone SOD 1 GM in DEXTROSE 5% (D5W) ADV/MINI-BAG 50 ML IV SCH (23:02)
[2024-10-30] MEDS: FUROSEMIDE 40MG/4ML VIAL IV SCH (23:04)
[2024-10-31] VITALS (13 sets, daily range): BP systolic 120–141; BP diastolic 68–83; TEMP 97–97.7; O2SAT 85–93
[2024-10-31 04:32] LABS: BASO % 0.1 % (0.0-1.0); HEMATOCRIT 34.7 % (36.0-47.0); HEMOGLOBIN 11.6 g/dl (12.0-15.5); LYMPH # 1.1 10^3/uL (1.5-5.0); LYMPH % 7.8 % (24.0-44.0); MEAN CORPUSCULAR HEMOGLOBIN 29.1 pg (27.0-33.0); MEAN CORPUSCULAR HGB CONC 33.4 g/dl (32.0-36.5); MONO # 1.5 10^3/uL (0.0-0.8); MONO % 10.3 % (2.0-8.0); NEUTROPHILS # 11.8 10^3/uL (1.5-8.5); NEUTROPHILS % 81.2 % (36.0-66.0); PLATELET COUNT, AUTOMATED 224 10^3/uL (150-450); RED BLOOD COUNT 3.99 10^6/uL (4.00-5.40); WHITE BLOOD COUNT 14.6 10^3/uL (4.0-10.0)
[2024-10-31 04:51] LABS: INR 1.05
[2024-10-31 04:57] LABS: CALCIUM LEVEL 9.1 MG/DL (8.3-10.6); CREATININE FOR GFR 0.81 MG/DL (0.55-1.30); GLOMERULAR FILTRATION RATE 76.1 (>39); MAGNESIUM LEVEL 2.1 MG/DL (1.8-2.4); POTASSIUM SERUM 3.9 MMOL/L (3.5-5.1)
[2024-10-31] MEDS: predniSONE 20 MG TAB PO SCH ×2 (09:05→12:00)
[2024-10-31] MEDS ORDERED: propofoL 200 MG/20 ML VIAL As Ordered ONE (11:52)
[2024-10-31] MEDS ORDERED: LIDOCAINE 2% 100MG/5ML SDV (FOR ANES.) As Ordered ONE (11:52)
[2024-10-31] MEDS ORDERED: fentaNYL 100 MCG/2 ML INJECTION As Ordered ONE (11:52)
[2024-10-31] MEDS ORDERED: ROCURONIUM BROMIDE 50MG/5ML VIAL As Ordered ONE (11:52)
[2024-10-31] MEDS ORDERED: MIDAZOLAM INJ 2MG/2ML VIAL As Ordered ONE (11:53)
[2024-10-31] MEDS ORDERED: PROMETHAZINE 25MG/ML 1ML VIAL IV PRN (12:45)
[2024-10-31] MEDS ORDERED: ONDANSETRON 4MG 2ML VIAL IV PRN (12:45)
[2024-10-31] MEDS ORDERED: oxyCODONE 5MG TAB PO PRN (12:45)
[2024-10-31] MEDS ORDERED: PHENYLephrine 500MCG 5ML (100MCG/ML) SYRINGE As Ordered ONE (13:35)
[2024-10-31] MEDS ORDERED: ePHEDrine SULFATE 25 MG/5 ML(5MG/ML) SYRINGE As Ordered ONE (13:35)
[2024-10-31 14:28] LABS: PH BODY FLUID 7.266 UNITS (NOT ESTABLISHED); SOURCE, BODY FLUID pH PLEURAL
[2024-10-31 14:37] LABS: APPEARANCE, BODY FLUID TURBID (CLEAR); PLEURAL FL COLOR RED (COLORLESS); SOURCE, BODY FLUID PLEURAL
[2024-10-31 17:35] LABS: AMYLASE, BODY FLUID 36 U/L (NOT ESTABLISHED); CHOLESTEROL, BODY FLUID 150 MG/DL (NOT ESTABLISHED); SOURCE, BODY FLUID AMYLASE PLEURAL; SOURCE, BODY FLUID CHOL PLEURAL; SOURCE, BODY FLUID GLUCOSE PLEURAL; SOURCE, BODY FLUID TRIG PLEURAL; TRIGLYCERIDE, BODY FLUID 77 MG/DL (NOT ESTABLISHED)
[2024-10-31 17:38] LABS: SOURCE, BODY FLUID ALBUMIN PLEURAL; SOURCE, BODY FLUID TOT PROTEIN PLEURAL; TOTAL PROTEIN, BODY FLUID 5.3 G/DL (NOT ESTABLISHED)
[2024-10-31 17:44] LABS: LDH, BODY FLUID 3332 U/L (NOT ESTABLISHED); SOURCE, BODY FLUID LDH PLEURAL
[2024-10-31 23:36] LABS: VENOUS BASE EXCESS 3.5 (-2.0-2.0); VENOUS HCO3 28.3 MMOL/L (23.0-27.0); VENOUS O2 SATURATION 96.8 % (60.0-80.0); VENOUS PARTIAL PRESSURE CO2 43.5 mmHg (38.0-50.0); VENOUS PARTIAL PRESSURE O2 94.2 mmHg (30.0-50.0); VENOUS PH 7.431 UNITS (7.330-7.430); VENOUS STANDARD HCO3 27.6 MMOL/L; VENOUS TOTAL CO2 29.6 MMOL/L (24.0-28.0)
[2024-11-01 04:00] VITALS: BP 135/78; TEMP 97.7; O2SAT 91
[2024-11-01 05:08] LABS: BASO % 0.1 % (0.0-1.0); HEMATOCRIT 33.9 % (36.0-47.0); HEMOGLOBIN 11.5 g/dl (12.0-15.5); LYMPH # 1.2 10^3/uL (1.5-5.0); LYMPH % 8.2 % (24.0-44.0); MEAN CORPUSCULAR HEMOGLOBIN 29.3 pg (27.0-33.0); MEAN CORPUSCULAR HGB CONC 33.9 g/dl (32.0-36.5); MEAN CORPUSCULAR VOLUME 86.5 fl (80.0-96.0); MONO # 1.5 10^3/uL (0.0-0.8); MONO % 10.3 % (2.0-8.0); NEUTROPHILS # 11.6 10^3/uL (1.5-8.5); NEUTROPHILS % 80.8 % (36.0-66.0); PLATELET COUNT, AUTOMATED 185 10^3/uL (150-450); RED BLOOD COUNT 3.92 10^6/uL (4.00-5.40); WHITE BLOOD COUNT 14.4 10^3/uL (4.0-10.0)
[2024-11-01 05:28] LABS: INR 1.01; PROTHROMBIN TIME 13.7 SECONDS (12.5-14.5)
[2024-11-01 05:35] LABS: CALCIUM LEVEL 8.4 MG/DL (8.3-10.6); CREATININE FOR GFR 0.76 MG/DL (0.55-1.30); GLOMERULAR FILTRATION RATE 82.2 (>39); POTASSIUM SERUM 4.4 MMOL/L (3.5-5.1)
[2024-11-01 08:00] VITALS: BP 135/78; TEMP 97.7; O2SAT 90
[2024-11-01] MEDS: APIXABAN 5 MG TAB PO SCH (11:49)
[2024-11-01 12:00] VITALS: BP 134/74; TEMP 97.5; O2SAT 92
[2024-11-01 16:00] VITALS: BP 132/82; TEMP 97.9; O2SAT 93
[2024-11-01 19:17] VITALS: BP 127/67; TEMP 97.9; O2SAT 93
[2024-11-01 23:44] VITALS: BP 126/65; TEMP 97.2; O2SAT 92
[2024-11-02 03:57] VITALS: BP 128/67; TEMP 97.3; O2SAT 94
[2024-11-02 05:01] LABS: BASO % 0.1 % (0.0-1.0); HEMOGLOBIN 10.6 g/dl (12.0-15.5); LYMPH # 0.9 10^3/uL (1.5-5.0); LYMPH % 6.8 % (24.0-44.0); MEAN CORPUSCULAR HEMOGLOBIN 29.4 pg (27.0-33.0); MEAN CORPUSCULAR HGB CONC 34.2 g/dl (32.0-36.5); MEAN CORPUSCULAR VOLUME 86.1 fl (80.0-96.0); MONO # 1.4 10^3/uL (0.0-0.8); MONO % 9.9 % (2.0-8.0); NEUTROPHILS # 11.3 10^3/uL (1.5-8.5); NEUTROPHILS % 82.7 % (36.0-66.0); PLATELET COUNT, AUTOMATED 152 10^3/uL (150-450); WHITE BLOOD COUNT 13.7 10^3/uL (4.0-10.0)
[2024-11-02 05:25] LABS: INR 1.3; PROTHROMBIN TIME 16.4 SECONDS (12.5-14.5)
[2024-11-02 05:30] LABS: BLOOD UREA NITROGEN 29 MG/DL (9-23); CALCIUM LEVEL 8.6 MG/DL (8.3-10.6); CARBON DIOXIDE LEVEL 31 MMOL/L (20-31); CHLORIDE LEVEL 95 MMOL/L (98-107); CREATININE FOR GFR 0.62 MG/DL (0.55-1.30); GLOMERULAR FILTRATION RATE > 90.0 (>39); GLUCOSE, FASTING 258 MG/DL (74-106); MAGNESIUM LEVEL 2.1 MG/DL (1.8-2.4); POTASSIUM SERUM 4.1 MMOL/L (3.5-5.1); SODIUM LEVEL 133 MMOL/L (136-145)
[2024-11-02 08:00] VITALS: BP 126/68; TEMP 97.3; O2SAT 93
[2024-11-02] MEDS: LEVALBUTEROL 1.25 MG 0.5ML CONCENTRATE NEB INH PRN (08:09)
[2024-11-02 12:00] VITALS: BP 122/68; TEMP 97.5; O2SAT 90
== END 2024-11-02 13:34 | disposition home health service (06) | DRG 180 ==
LOC: EDBD 15:27 → M ED 15:27 → M ED INP 15:28 → M MSPAV 22:57 → OBSVTOIN 10-30 07:42
PROVIDERS: ADMIT Student in an Organized Health Care Education/Training Program; ATTEND Internal Medicine
PROC: 0W9930Z Drainage of Right Pleural Cavity with Drainage Device, Percutaneous Approach (ICD-10-PCS; principal; 2024-10-31 12:00)
DX: C78.01 Secondary malignant neoplasm of right lung (principal); J96.01 Acute respiratory failure with hypoxia; J91.0 Malignant pleural effusion; C79.51 Secondary malignant neoplasm of bone; E87.20 Acidosis, unspecified; D84.821 Immunodeficiency due to drugs; C78.02 Secondary malignant neoplasm of left lung; I10 Essential (primary) hypertension; C43.4 Malignant melanoma of scalp and neck; Z66 Do not resuscitate; G47.30 Sleep apnea, unspecified; K21.9 Gastro-esophageal reflux disease without esophagitis; E03.9 Hypothyroidism, unspecified; R13.10 Dysphagia, unspecified; M19.90 Unspecified osteoarthritis, unspecified site; Z99.81 Dependence on supplemental oxygen; G47.33 Obstructive sleep apnea (adult) (pediatric); Z79.01 Long term (current) use of anticoagulants; Z79.52 Long term (current) use of systemic steroids; Z79.890 Hormone replacement therapy; Z79.899 Other long term (current) drug therapy; Z96.651 Presence of right artificial knee joint; Z86.73 Personal history of transient ischemic attack (TIA), and cerebral infarction without residual deficits

== ENCOUNTER 2024-11-09 11:39 | Emergency (ER) | payer MEDICARE, OTHER ==
[~2024-11-09] VITALS: Ht 162.6 cm; Wt 86.4 kg
[~2024-11-09 11:39] MED LIST changes: +ELIQ5TAB PO; +ELIQ5TAB4; +LEVO25TA5 PO; +ONDA-282 PO; +OXYC-517 PO; +PRED20TA PO; +PREG50CA3 PO
[2024-11-09 11:54] VITALS: TEMP 97.6
[2024-11-09 14:00] VITALS: BP 113/58
[2024-11-09 14:09] VITALS: O2SAT 93
== END 2024-11-09 15:29 | disposition left against medical advice (07) ==
LOC: EDBD 11:39 → M ED 11:39
DX: Z53.21 Procedure and treatment not carried out due to patient leaving prior to being seen by health care provider (principal)